=== PATIENT | female | born 1960 | race Caucasian/White ===

== ENCOUNTER 2017-07-04 22:21 | Emergency (ER) | payer BC, OTHER ==
--- NOTE | 2017-07-04 22:23 | PDOC ---
History of Present Illness - General Chief Complaint: Blood Pressure Problem Stated Complaint: HTN Time Seen by Provider: 07/04/17 22:22 History Source: Patient Exam Limitations: No Limitations - History of Present Illness Initial Comments: 07/04/17 22:37 This is a 57-year-old female who comes in complaining of hypertension. Patient ran out of her medications but recently got a new shipment from the mail order and did take her hypertension medication this evening. Patient's blood pressure here in the emergency room was 163/86. Patient denied any headache, chest pain, shortness of breath, nausea. Patient's is complaining of some bilateral pedal edema. One of her medications his hydrochlorothiazide. Patient did take her hydrochlorothiazide this evening. PAST MEDICAL HISTORY: no significant history PAST SURGICAL HISTORY: no significant history FAMILY HISTORY: no pertinant history SOCIAL HISTORY: Pt lives with family and is employed. MEDICATIONS: reviewed ALLERGIES: As per nursing notes Review of Systems General: No fevers or chills, no weakness, no weight loss HEENT: No change in vision. No sore throat,. No ear pain CardioVascular: No chest pain or shortness of breath Respiratory:No cough, or wheezing. Gastrointestinal: no nausea, vomitting, diarrhea or constipation, No rectal bleeding Genitourinary: No dysuria, hematuria, or frequency Musculoskeletal: No joint or muscle pain or swelling Neurologic: No headache, vertigo, dizziness or loss of consciousness Psychiatric: nor depression Skin: No rashes or easy bruising Endocrine: no increased thirst or abnormal weight change Allergic: no skin or latex allergy All other systems reviewed and normal Exam: General: Well-nourished well-developed individual, no acute distress HEENT: Throat: Normal, tonsils normal, no erythema or exudate Neck: Supple, no meningeal signs, no lymphadenopathy Eyes::Pupils equal reactive and round, extraocular motion intact Chest: Nontender to palpation Cardiac: S1-S2 normal, regular rate and rhythm, no murmurs rubs or gallops Respiratory: Lungs clear to auscultation bilateral Extremities: Warm, dry, no cyanosis, clubbing, or edema Skin: No rashes Neuro: Alert and oriented x3, CN II - XII intact, nonfocal exam with normal strength, normal sensation, normal reflexes, normal gait, Psych: Normal mood and affect Assessment and plan: This is a 57-year-old male who comes in complaining of hypertension. Patient's blood pressure here was mildly elevated however she had no other complaints. Patient has restarted her medication that she had run out. Patient was told to she can double up on her hydrochlorothiazide for a couple a days until her feet are less swollen. Patient has a primary care doctor to follow-up with. Past History - Past Medical History Allergies/Adverse Reactions: Allergies Allergy/AdvReac Type Severity Reaction Status Date / Time No Known Allergies Allergy Verified 06/07/15 22:44 Home Medications: Ambulatory Orders Aspirin [ASA -] 81 mg PO DAILY 06/07/15 Levothyroxine [Synthroid -] 125 mcg PO DAILY 06/07/15 Nebivolol HCl [Bystolic] 10 mg PO DAILY 06/07/15 Pitavastatin Calcium [Livalo] 4 mg PO DAILY 06/07/15 HTN: Yes Seizures: Yes - Suicide/Smoking/Psychosocial Hx Smoking History: Never smoked Have you smoked in the past 12 months: No Hx Alcohol Use: Yes (SOCIAL) Drug/Substance Use Hx: No Substance Use Type: None *DC/Admit/Observation/Transfer Diagnosis at time of Disposition: Hypertension Qualifiers: Hypertension type: essential hypertension Qualified Code(s): I10 - Essential ( primary) hypertension - Discharge Dispostion Disposition: HOME Condition at time of disposition: Good - Referrals - Patient Instructions Additional Instructions: Continue to take your medications as prescribed. You can double up on her water pill for a couple days until the swelling is improved. Return to the emergency department immediately with ANY new, persistent or worsening symptoms. Continue any medications as previously prescribed by your physician. You should follow up with your primary doctor as soon as possible regarding today's emergency department visit. . Please make sure your doctor reviews the results of your emergency evaluation. Thank you for coming to the Emergency Department today for your care. It was a pleasure to see you today. Please note that your evaluation is INCOMPLETE until you follow-up with your doctor. - Post Discharge Activity
[2017-07-04 22:26] VITALS: BP 163/86; PULSE 86; TEMP 98; BMI 35.4
== END 2017-07-04 22:43 | disposition home or self-care (01) ==
LOC: FER 22:21
DX: I10 Essential (primary) hypertension (principal)
CPT/HCPCS: 99282-25